=== PATIENT | female | born 1950 | race Caucasian/White ===

== ENCOUNTER 2019-01-30 19:56 | Emergency (ER) | payer OTHER ==
[2019-01-30 20:14] VITALS: BP 154/80; PULSE 94; TEMP 99.2; BMI 38.2
--- NOTE | 2019-01-30 21:34 | PDOC ---
History of Present Illness - General Chief Complaint: Toothache Stated Complaint: TOOTH PAIN Time Seen by Provider: 01/30/19 21:07 History Source: Patient Exam Limitations: No Limitations - History of Present Illness Initial Comments: 01/30/19 21:30 HISTORY OF PRESENT ILLNESS: 68-year-old woman significant medical history of root canal performed on 01/26 was currently taking azithromycin and Motrin for pain after the procedure. Patient was here visiting her cousin when she began to notice facial swelling and redness. Patient had mild pain and swelling 200 mg of Motrin prior to coming to the emergency department. Upon arrival in the ER all symptoms had resolved. Patient offers no complaints at this time. No recent travel or sick contacts. PAST MEDICAL HISTORY: Denies past medical history SURGICAL HISTORY: Denies ALLERGIES: No known drug allergies REVIEW OF SYSTEMS General/Constitutional: Denies fever or chills. Denies weakness, weight change. HEENT: Denies change in vision. Denies ear pain or discharge. Denies sore throat. Cardiovascular: Denies chest pain or shortness of breath. Respiratory: Denies cough, wheezing, or hemoptysis. Gastrointestinal: Denies nausea, vomiting, diarrhea or constipation. Denies rectal bleeding. Genitourinary: Denies dysuria, frequency, or change in urination. Musculoskeletal: Denies joint or muscle swelling or pain. Denies neck or back pain. Skin and breasts: Denies rash or easy bruising. Neurologic: Denies headache, vertigo, loss of consciousness, or loss of sensation. Psychiatric: Denies depression or anxiety. Endocrine: Denies increased thirst. Denies abnormal weight change. Hematologic/Lymphatic: Denies anemia, easy bleeding, or history of blood clots. Allergic/Immunologic: Denies hives or skin allergy. Denies latex allergy. PHYSICAL EXAM General Appearance: Well-appearing, appropriately dressed. No apparent distress , no intoxication. HEENT: EOMI, PERRLA, normal ENT inspection, normal voice, TMs normal, pharynx normal. No conjunctival pallor. No photophobia, scleral icterus. Neck: Supple. Trachea midline. No tenderness, rigidity, carotid bruit, stridor , lymphadenopathy, or thyromegaly. Respiratory/Chest: Lungs CTAB. No shortness of breath, chest tenderness, respiratory distress, accessory muscle use. No crackles, rales, rhonchi, stridor , wheezing, dullness Cardiovascular: RRR. S1, S2. No JVD, murmur, bradycardia, tachycardia. Vascular Pulses: Dorsalis-Pedis (R): 2+, Dorsalis-Pedis (L): 2+ Gastrointestinal/Abdominal: Normal bowel sounds. Abdomen soft, non-distended. No tenderness or rebound tenderness. No organomegaly, pulsatile mass, guarding, hernia, hepatomegaly, splenomegaly. Lymphatic: No adenopathy, tenderness. Musculoskeletal/Extremities: Normal inspection. FROM of all extremities, normal capillary refill. Pelvis Stable. No CVA tenderness. No tenderness to extremities, pedal edema, swelling, erythema or deformity. Integumentary: Appropriate color, dry, warm. No cyanosis, erythema, jaundice or rash Neurologic: director records management II-XII intact. Fully oriented, alert. Appropriate mood/affect. Motor strength 5/5. No appreciable EOM palsy, facial droop or sensory deficit. 01/30/19 21:33 Past History - Past Medical History Allergies/Adverse Reactions: Allergies Allergy/AdvReac Type Severity Reaction Status Date / Time No Known Allergies Allergy Verified 01/30/19 20:07 Asthma: Yes COPD: No Diabetes: (prediabetes) HTN: Yes Hypercholesterolemia: Yes - Suicide/Smoking/Psychosocial Hx Smoking History: Never smoked Hx Alcohol Use: No Drug/Substance Use Hx: No *Physical Exam - Vital Signs Last Vital Signs Temp Pulse Resp BP Pulse Ox 99.2 F 94 H 18 154/80 100 01/30/19 20:07 01/30/19 20:07 01/30/19 20:07 01/30/19 20:07 01/30/19 20:07 Medical Decision Making - Medical Decision Making 01/30/19 21:32 A/P: 68-year-old woman here for evaluation of resolved facial swelling Verbal reassurance given that her current treatment plan is to correct plan. Patient instructed to follow-up with her oral surgeon on Thursday as previously scheduled Discharge Portions of this note have been documented using voice recognition software. As a result, errors may occur in the fish hatchery specialist process. Effort has been made to correct all grammatical and fish hatchery specialist error, but some may have been missed. *DC/Admit/Observation/Transfer Diagnosis at time of Disposition: Reassurance provided - Discharge Dispostion Disposition: HOME Condition at time of disposition: Stable Decision to Admit order: No - Referrals - Patient Instructions Additional Instructions: Follow-up with the oral surgeon on Thursday as previously scheduled. Continue taking his prescribed medications. It is safe to take Motrin 400-600 mg in short periods. Return to the emergency department for any new or worsening symptoms. Thank you very much for choosing us to provide your emergent health care needs. - Post Discharge Activity
== END 2019-01-30 21:43 | disposition home or self-care (01) ==
LOC: JERFT 19:56
DX: K08.89 Other specified disorders of teeth and supporting structures (principal); I10 Essential (primary) hypertension; E78.00 Pure hypercholesterolemia, unspecified; R73.03 Prediabetes
CPT/HCPCS: 99282-25